=== PATIENT | female | born 1960 | race Caucasian/White ===

== ENCOUNTER → 2019-06-05 | Outpatient (CLI) | payer BC ==
--- NOTE | 2019-06-06 10:56 | MM ---
Reason for exam: screening (asymptomatic). Last mammogram was performed 3 years and 2 months ago. History: Patient is postmenopausal and had first child at age 33. Family history of breast cancer in 2 paternal aunts. Benign MG stereo VAD BX LT of the left breast, April 29, 2016. Benign cyst aspiration, 1994. Took hormonal contraceptives for 10 years. Physical Findings: A clinical breast exam by your physician is recommended on an annual basis and results should be correlated with mammographic findings. MG Screening Mammo w CAD Bilateral CC and MLO view(s) were taken. Prior study comparison: April 13, 2016, left breast MG work up mamm w CAD LT. March 23, 2016, bilateral MG screening mammo w CAD. The breast tissue is heterogeneously dense. This may lower the sensitivity of mammography. There are benign appearing round calcifications bilaterally. Previous mammotome biopsy in the left breast. There is no dominant lesion. Asymmetric breast tissue left subaeolar area stable from 2012. ASSESSMENT: Benign, BI-RAD 2 RECOMMENDATION: Routine screening mammogram of both breasts in 1 year.
== END | disposition home or self-care (01) ==
LOC: RADMAMWWP 11:49
PROVIDERS: ATTEND Obstetrics & Gynecology
DX: Z12.31 Encounter for screening mammogram for malignant neoplasm of breast (principal)
CPT/HCPCS: 77067

== ENCOUNTER → 2021-04-28 | Outpatient (CLI) | payer BC ==
--- NOTE | 2021-04-30 08:31 | MM ---
Reason for exam: screening (asymptomatic). Last mammogram was performed 1 year and 11 months ago. History: Patient is postmenopausal and had first child at age 33. Family history of breast cancer in 2 paternal aunts. Benign MG stereo VAD BX LT of the left breast, April 29, 2016. Benign cyst aspiration, 1994. Took hormonal contraceptives for 10 years. Physical Findings: A clinical breast exam by your physician is recommended on an annual basis and results should be correlated with mammographic findings. MG 3D Screening Mammo W/Cad Bilateral CC and MLO view(s) were taken. Prior study comparison: June 05, 2019, bilateral MG screening mammo w CAD. April 13, 2016, left breast MG work up mamm w CAD LT. March 23, 2016, bilateral MG screening mammo w CAD. The breast tissue is almost entirely fat. No significant changes when compared with prior studies. ASSESSMENT: Benign, BI-RAD 2 RECOMMENDATION: Routine screening mammogram of both breasts in 1 year.
== END | disposition home or self-care (01) ==
LOC: RADMAMWWP 13:24
PROVIDERS: ATTEND Family Medicine
DX: Z12.31 Encounter for screening mammogram for malignant neoplasm of breast (principal); Z78.0 Asymptomatic menopausal state; Z80.3 Family history of malignant neoplasm of breast; Z79.3 Long term (current) use of hormonal contraceptives
CPT/HCPCS: 77063; 77067

== ENCOUNTER 2022-10-09 11:15 | Day surgery (SDC) | payer BC ==
[2022-10-07 11:07] VITALS: BMI 23.3
[~2022-10-09 11:15] MED LIST: DEXAMETHASONE SOD PHOSPHATE 4 MG/ML 1 ML VIAL IV ONE; HYDROmorphone 0.5 MG/0.5 ML SYRINGE IVP PRN; LACTATED RINGERS 1,000 ML IV SCH; LIDOCAINE 1% (10MG/ML) FOR IV START INTRADERMA PRN; MIDAZOLAM 2 MG/2 ML VIAL IV PRN; ONDANSETRON 4 MG/2 ML VIAL IVP ONE
[2022-10-09 12:13] VITALS: TEMP 99.4
[2022-10-09] MEDS ORDERED: LIDOCAINE 2% INJ 20 MG/ML (2 ML VIAL) ONE (12:55)
[2022-10-09] MEDS ORDERED: MIDAZOLAM 2 MG/2 ML VIAL ONE (12:55)
[2022-10-09] MEDS ORDERED: fentaNYL (PF) 50 MCG/ML 2 ML AMP ONE (12:55)
[2022-10-09] MEDS ORDERED: PROPOFOL 10 MG/ML 20 ML VIAL IV ONE (12:55)
[2022-10-09] MEDS ORDERED: KETAMINE 10 MG/ML 20 ML VIAL ONE (12:55)
[2022-10-09] MEDS ORDERED: LIDOCAINE 1% INJ 10MG/ML (5 ML VIAL-PF) SQ ONE ×2 (13:18)
[2022-10-09] MEDS ORDERED: ACETAMINOPHEN TAB 325 MG TAB PO PRN ×2 (13:31→13:34)
[2022-10-09 13:37] VITALS: RESP 16
--- NOTE | 2022-10-09 13:37 | P.OP ---
Date of Procedure: 10/09/22 Preoperative Diagnosis: Recurrent left sided pleural effusion in the presence of metastatic pelvic cancer. Postoperative Diagnosis: Same Procedure(s) Performed: Left sided pleurX insertion Implants: PleurX catheter Anesthesia: YONI Surgeon: Ky Brown Estimated Blood Loss (ml): 5 Pathology: none sent Condition: stable Disposition: PACU Indications for Procedure: Recurrent left sided effusion in the setting of metastatic pelvic cancer. Operative Findings: 2500cc of serious fluid drained Description of Procedure: The patient was brought to the operating room and placed on the table in supine position. She was sedated and her left chest was prepped and draped in the usual sterile fashion. Antibiotics were given. I used 0.5% lidocaine to anesthetize the skin over the costal margin and on top of the 9th rib. I inserted the needle into the chest with good return of serous fluid. A guidewire was threaded into the chest under flouroscopic vision. The catheter was tunneled from the costal margin to the wire site and inserted into the chest over a peel away sheath. This was confirmed using flouroscopy. 2500cc of serous fluid was drained from the left chest.
[2022-10-09] MEDS ORDERED: KETOROLAC 15 MG/ML 1 ML VIAL ONE (13:50)
[2022-10-09] MEDS ORDERED: KETOROLAC 15 MG/ML 1 ML VIAL IVP ONE (13:51)
--- NOTE | 2022-10-09 14:08 | FL ---
EXAMINATION TYPE: FL guidance operating room DATE OF EXAM: 10/09/2022 CLINICAL HISTORY: Left-sided pleural effusion TECHNIQUE: Fluoroscopy. COMPARISON: CT abdomen and pelvis 6 days ago FINDINGS: Fluoroscopic guidance was provided during Pleurx catheter insertion procedure performed by Dr. Brown. A total of 3 seconds of fluoroscopic time was utilized during the procedure and 1 spot i mages was acquired. Intraoperative image shows catheter left lung base level. IMPRESSION: As Above.
--- NOTE | 2022-10-09 14:09 | XR ---
EXAMINATION TYPE: XR chest 1V portable DATE OF EXAM: 10/09/2022 COMPARISON: Chest x-ray 1 week ago. HISTORY: Pleural drainage catheter insertion TECHNIQUE: Single AP portable frontal upright view of the chest is obtained. FINDINGS: There is new left basilar pleural drainage catheter. Improved aeration left lung base is s een. Persistent small to moderate amount simple pleural fluid collection and associated left lower nataly ng atelectasis and/or infiltrate. Right lung remains clear. The cardiac silhouette size is upper limi ts of normal. Underlying scoliotic curvature is present. IMPRESSION: Improved but persistent left-sided pleural fluid collection after basilar catheter inser tion.
[2022-10-09] MEDS ORDERED: ACETAMINOPHEN TAB 500 MG TAB ONE (14:12)
[2022-10-09 14:27] VITALS: BP 126/77; PULSE 85
== END 2022-10-09 15:04 | disposition home health service (06) ==
LOC: OR 11:15
PROVIDERS: ATTEND Thoracic Surgery (Cardiothoracic Vascular Surgery)
DX: J90 Pleural effusion, not elsewhere classified (principal); C76.3 Malignant neoplasm of pelvis; F12.90 Cannabis use, unspecified, uncomplicated; K21.9 Gastro-esophageal reflux disease without esophagitis; Z79.899 Other long term (current) drug therapy
CPT/HCPCS: 71045; 32557; J2250; J1100; J2405; J2001 ×2; J3010; J1885; J2704

== ENCOUNTER → 2023-05-20 | Outpatient (CLI) | payer BC ==
--- NOTE | 2023-05-21 08:46 | MM ---
Reason for Exam: Screening (asymptomatic). Last mammogram was performed 2 year(s) and 1 month(s) ago. Patient History: Menarche at age 14. First Full-Term at age 33. Late child-bearing (after 31). Left ovary removed at age 62. Right ovary removed at age 62. Hysterectomy at age 62. Postmenopausal. Patient has history of breast feeding. Ovarian cancer, age 62. Previous chemotherapy at age 62. Patient used Hormonal Contraceptives for 10 years. Benign Cyst Aspiration. 04/29/2016, Benign Core Biopsy on the left side. Paternal aunt had breast cancer. Paternal aunt had breast cancer. Risk Values: Julissa 5 year model risk: 2.4%. NCI Lifetime model risk: 11.4%. Prior Study Comparison: 04/13/2016 Left Diagnostic Mammogram, [facility]. 06/05/2019 Bilateral Screening Mammogram, [facility]. 04/28/2021 Bilateral Screening Mammogram, [facility]. Tissue Density: There are scattered fibroglandular densities. Findings: Analyzed By CAD. There is no suspicious group of microcalcifications or new suspicious mass in either breast. Benign round calcifications within both breasts. Biopsy clip within the left breast. Overall Assessment: Benign, BI-RAD 2 Management: Screening Mammogram of both breasts in 1 year. A clinical breast exam by your physician is recommended on an annual basis and results should be correlated with mammographic findings. Note on Julissa scores and lifetime risk: 1. A Julissa score greater than 3% is considered moderate risk. If this is the case, consider specialist referral to assess eligibility for a risk reducing agent. If overall lifetime risk for the development of breast cancer is 20% or higher, the patient may qualify for future screening with alternating mammogram and breast MRI. Electronically signed and approved by: Javier Schmidt D.O.
== END | disposition home or self-care (01) ==
LOC: RADMAMWWP 16:08
PROVIDERS: ATTEND Family Medicine
DX: Z12.31 Encounter for screening mammogram for malignant neoplasm of breast (principal); Z78.0 Asymptomatic menopausal state; Z80.3 Family history of malignant neoplasm of breast
CPT/HCPCS: 77063; 77067

== ENCOUNTER → 2023-11-02 | Outpatient (CLI) | payer BC ==
[2023-11-02 11:26] LABS: African American GFR (CKD) 76 (>60 ml/min/1.73 sqM); Blood Urea Nitrogen 20 mg/dL (7-17); Non-African American GFR(CKD) 66 (>60 ml/min/1.73 sqM)
--- NOTE | 2023-11-02 12:51 | CT ---
EXAMINATION TYPE: CT ChestAbdPelvis w con DATE OF EXAM: 11/02/2023 COMPARISON: 12/06/2022 HISTORY: 62-year-old female C56.3, MALIGNANT NEOPLASM OF BILATERAL OVARIES TECHNIQUE: Contiguous axial scanning of the chest, abdomen, and pelvis performed with IV Contrast, pa tient injected with 100 mL of Isovue 300. Delayed images through the kidneys were obtained. Coronal/s agittal reconstructions performed. CT DLP: 572.8 mGycm Automated exposure control for dose reduction was used. FINDINGS: CHEST: The heart is normal size without pericardial effusion. 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 Right anterior chest wall injection port. Catheter tip at the lower. No thoracic lymphadenopathy by CT size criteria. Suspect a 1.1 cm subpleural lipoma overlying the left hemidiaphragm. Lungs show no consolidation or p leural effusion. ABDOMEN: Benign 2.4 cm hemangioma posterior right liver lobe redemonstrated. Portal venous system is patent. N o biliary ductal dilatation. There is a 1.5 cm gallstone. No abnormal gallbladder distention. Mild thickening of the left adrenal gland without discrete nodularity. Right adrenal gland not clearl y identified. Surgical clips upper right retroperitoneum. A couple benign renal cortical cysts measuring up to 9 mm. Symmetric uptake and excretion of contrast from the kidneys. Spleen and pancreas within normal limits. No dilated small bowel, free fluid, or free air. No mesenteric or retroperitoneal adenopathy is seen. Oral contrast progressed into the ascending colon. There is moderate stool throughout the colon and a sigmoid colostomy left lower quadrant. There is diverticulosis along the descending colon and proxim al to mid sigmoid colon colon just prior to the ostomy but no pericolic inflammatory change seen. The previous ascites and large pelvic mass which extended to the lower abdomen has been removed. Pelvis: Bladder nondistended. Left-sided pelvic phleboliths there is some nodular prominence measuring 2.3 cm at the vaginal cuff. No prior postsurgical exam is available to determine stability here. This may r eflect a prominent vaginal cuff after surgery. Recommend short interval follow-up to ensure stable ap pearance. Adjacent Andie's pouch noted. No abnormal fluid collection in the pelvis or pelvic lymph adenopathy. Neither ovary is visualized. Bones: Mild degenerative change of the hips. Mild degenerative change SI joints. Accentuated midthoracic ky phosis. Facet arthropathy lower lumbar spine. No osseous destructive process. IMPRESSION: 1. The previous large mass filling the pelvis and extending into the lower abdomen has been removed. Resolution of previous mild ascites fluid as well. 2. The vaginal cuff shows 2.3 cm nodular soft tissue prominence which may be normal postsurgical appe arance. Recommend short interval follow-up to ensure a stable appearance and to exclude any developin g soft tissue at the site of hysterectomy. 3. Otherwise, no evidence for metastatic disease within the chest, abdomen, or pelvis. 4. Status post distal colon resection with Bucio's pouch and left lower quadrant sigmoid colostomy. There is left-sided colonic diverticulosis without evidence for acute diverticulitis. 5. Incidental: Benign 2.4 cm hepatic hemangioma and a 1.5 cm gallstone.
== END | disposition home or self-care (01) ==
LOC: RADPROMAIN 10:28
PROVIDERS: ATTEND Internal Medicine Hematology & Oncology
DX: C56.3 Malignant neoplasm of bilateral ovaries (principal); D64.81 Anemia due to antineoplastic chemotherapy; R11.0 Nausea; D18.03 Hemangioma of intra-abdominal structures; K80.20 Calculus of gallbladder without cholecystitis without obstruction; K57.30 Diverticulosis of large intestine without perforation or abscess without bleeding; Z93.3 Colostomy status
CPT/HCPCS: 82565; 84520; 71260; 74177; J1642; Q9967

== ENCOUNTER 2023-12-23 12:31 | Emergency (ER) | payer BC ==
[2023-12-23 12:53] VITALS: RESP 18
--- NOTE | 2023-12-23 12:53 | ED ---
ENT HPI - General Chief complaint: ENT Stated complaint: nonstop nose bleed - pt has ovarian cancer Time Seen by Provider: 12/23/23 12:46 Source: patient, RN notes reviewed Mode of arrival: ambulatory Limitations: no limitations - History of Present Illness Initial comments: This is a 63-year-old female who presents to the emergency department for a nose bleed. States that it started about 20 minutes prior to arrival. She was just doing laundry when it occurred. Denies any pain associated with this. She is being treated for ovarian cancer but denies any new medications. She had blood work done 3 days ago that was normal, including normal platelets. Not taking any blood thinners. Denies a history of nosebleeds. MD complaint: epistaxis - Related Data Home Medications Medication Instructions Recorded Confirmed ALPRAZolam [Xanax] 0.25 mg PO Q6H PRN 12/01/22 12/01/22 Calcium Carbonate [Tums] 500 - 1,000 mg PO TID PRN 12/01/22 12/01/22 Lidocaine-Prilocaine Cream [Emla 1 applic TOPICAL DAILY PRN 12/01/22 12/01/22 Cream 2.5%/2.5%] OLANZapine [ZyPREXA] 5 mg PO DIRECTED 12/01/22 12/01/22 Ondansetron [Zofran] 4 mg PO Q8H PRN 12/01/22 12/01/22 Prochlorperazine [Compazine] 5 - 10 mg PO Q6H PRN 12/01/22 12/01/22 ondansetron HCL [Zofran] 8 mg PO BID PRN 12/01/22 12/01/22 oxyCODONE HCL [OxyIR] 5 mg PO HS 12/01/22 12/01/22 oxyCODONE HCL [OxyIR] 5 mg PO TID PRN 12/01/22 12/01/22 Previous Rx's Medication Instructions Recorded Ciprofloxacin HCl [Cipro] 500 mg PO Q12HR 10 Days #20 tab 12/10/22 Docusate [Colace] 100 mg PO DAILY PRN cap 12/10/22 Magnesium Oxide [Mag-Ox] 400 mg PO BID tab 12/10/22 Meclizine [Antivert] 25 mg PO TID PRN tab 12/10/22 Sodium Chloride Tab 1 gm PO BID tab 12/10/22 metroNIDAZOLE [Flagyl] 500 mg PO TID #30 tab 12/10/22 polyethylene glycoL 3350 [Miralax] 17 gm PO DAILY PRN packet 12/10/22 Allergies Allergy/AdvReac Type Severity Reaction Status Date / Time No Known Allergies Allergy Verified 12/23/23 12:39 Review of Systems ROS Statement: Those systems with pertinent positive or pertinent negative responses have been documented in the HPI. ROS Other: All systems not noted in ROS Statement are negative. Past Medical History Additional Past Medical History / Comment(s): new diagnosis ovarian CA-pt being referred to Dr Lucero Munguia,recent Sep 2022 admission for left pleural effusion/SOB/had thorencentesis w/ 1.7L removed on 10-02-22, prolapsed uterus/bladder, covid 12/2020 and 04/2022, UTI History of Any Multi-Drug Resistant Organisms: None Reported Past Surgical History: Section Additional Past Surgical History / Comment(s): adrenal gland removal 1995, pessary, has appt set for 10/05/2022 for prolapsed uterus/bladder repair Past Anesthesia/Blood Transfusion Reactions: No Reported Reaction Past Psychological History: No Psychological Hx Reported Smoking Status: Former smoker Past Alcohol Use History: None Reported Past Drug Use History: None Reported - Past Family History Mother Family Medical History: Osteoarthritis (OA) General Exam Limitations: no limitations General appearance: alert, in no apparent distress Head exam: Present: atraumatic, normocephalic, normal inspection Respiratory exam: Present: normal lung sounds bilaterally. Absent: respiratory distress, wheezes, rales, rhonchi, stridor Cardiovascular Exam: Present: regular rate, normal rhythm, normal heart sounds. Absent: systolic murmur, diastolic murmur, rubs, gallop, clicks Neurological exam: Present: alert, oriented X3, CN II-XII intact Psychiatric exam: Present: normal affect, normal mood Skin exam: Present: warm, dry, intact, normal color. Absent: rash Course Vital Signs 12/23/23 12/23/23 12:34 15:05 Temperature 97.5 F L 98.7 F Pulse Rate 97 80 Respiratory 18 18 Rate Blood Pressure 159/94 128/79 O2 Sat by Pulse 98 99 Oximetry Medical Decision Making - Medical Decision Making This is a 63 year old female who presents to the emergency department for epistaxis. Was pt. sent in by a medical professional or institution? @ -No Did you speak to anyone other than the patient for history? @ -No Did you review nursing and triage notes? @ -Yes, and I agree, it is accurate with regards to the patient's symptoms. Were old charts reviewed? @ -No Differential Diagnosis? @ -Differential Epistaxis: Injury, coagulopathy, allergic rhinitis, this is not meant to be an all- inclusive list. EKG interpreted by me (3pts min.)? @ -Not obtained X-rays interpreted by me (1pt min.)? @ -Not obtained CT interpreted by me (1pt min.)? @ -Not obtained U/S interpreted by me (1pt. min.)? @ -Not obtained What testing was considered but not performed? (CT, X-rays, U/S, labs)? Why? @ -None What meds were considered but not given? Why? @ -None Did you discuss the management of the patient with other professionals? @ -No Did you reconcile home meds? @ -No Was smoking cessation discussed for >3mins.? @ -No Was critical care preformed (if so, how long)? @ -No Were there social determinants of health that impacted care today? How? (Homelessness, low income, unemployed, alcoholism, drug addiction, transportation, low edu. Level, literacy, decrease access to med. care, penitentiary, rehab)? @ -No Was there de-escalation of care discussed even if they declined? (Discuss DNR or withdrawal of care, Hospice)? @ -No What co-morbidities impacted this encounter? (DM, HTN, Smoking, COPD, CAD, Cancer, CVA, Hep., AIDS, mental health diagnosis, sleep apnea, morbid obesity)? @ -None Was patient admitted / discharged? @ -Discharged. Afrin was administered in both nostrils and her nose was clamped for 20 to 30 minutes afterwards. Bleeding had stopped at that time. She was monitored for an additional 30 minutes without any return of symptoms. Patient sent home with Afrin and nasal clamps and instructed on how to use this again if the bleeding returns. Advised saline nasal spray to help moisten the nasal passages to reduce the risk of recurrence. Patient discharged home in stable condition. Undiagnosed new problem with uncertain prognosis? @ -None Drug Therapy requiring intensive monitoring for toxicity (Heparin, Nitro, Insulin, Cardizem)? @ -None Were any procedures done? @ -None Diagnosis/symptom? @ -Epistaxis Acute, or Chronic, or Acute on Chronic? @ -Acute Uncomplicated (without systemic symptoms) or Complicated (systemic symptoms)? @ -Uncomplicated Side effects of treatment? @ -None Exacerbation, Progression, or Severe Exacerbation] @ -Not applicable Poses a threat to life or bodily function? @ -No Return precautions reviewed in depth, the patient is instructed to return to the emergency department with any new, worsening, or concerning symptoms. Patient verbalized understanding. This case was discussed in detail with the attending ED physician, Dr. Niño. Presentation, findings, and treatment plan discussed in detail as well. Disposition Clinical Impression: Epistaxis Disposition: HOME SELF-CARE Instructions (If sedation given, give patient instructions): Nosebleed (ED) Additional Instructions: Return to the emergency department with any new, worsening, or concerning symptoms. If the nosebleed happens again, do a few squirts of Afrin in each nostril and clamp the nose for approximately 30 minutes. If this is not effective, you can repeat this. If the bleeding slows significantly, that is okay. However, if it continues bleeding persistently, return to the emergency department. Use over the counter saline nasal spray a few times daily to help moisten the nostrils and reduce the risk of recurrence. Follow up with your primary care provider in 1-2 days. Is patient prescribed a controlled substance at d/c from ED?: No Referrals: Harmeet Mackenzie MD [Primary Care Provider] - 1-2 days Time of Disposition: 14:25
[2023-12-23] MEDS: OXYMETAZOLINE 0.05% NASL SPRAY 1 SPRAY BOTTLE NASAL STA (12:57)
[2023-12-23 15:14] VITALS: BP 128/79; PULSE 80; TEMP 98.7
== END 2023-12-23 15:07 | disposition home or self-care (01) ==
LOC: EC 12:31
DX: R04.0 Epistaxis (principal); Z86.16 Personal history of COVID-19; Z87.891 Personal history of nicotine dependence
CPT/HCPCS: 99283

== ENCOUNTER → 2024-01-28 | Outpatient (CLI) | payer BC ==
[2024-01-28 10:38] LABS: African American GFR (CKD) 77 (>60 ml/min/1.73 sqM); Blood Urea Nitrogen 16 mg/dL (7-17); Non-African American GFR(CKD) 67 (>60 ml/min/1.73 sqM)
--- NOTE | 2024-01-28 14:51 | CT ---
EXAMINATION TYPE: CT ChestAbdPelvis w con DATE OF EXAM: 01/28/2024 INDICATION: Ovarian CA COMPARISON: 11/02/2023 CT DLP: 1215 mGycm CONTRAST: Performed with Oral Contrast and with IV Contrast, patient injected with 100 mL of Isovue 300. TECHNIQUE: Axial images at 5 mm thick sections. Reconstructed images in the coronal plane. Delayed images through the kidneys. FINDINGS: CT CHEST: Portion of the thyroid visualized is normal. No suspicious lung nodules or focal infiltrates are present. There is a 1.2 cm lymph node in the superior mediastinum at the level of the great vessels. The ascending aorta diameter at the level of the main pulmonary artery is 3.2 cm. The main pulmonary artery diameter at the bifurcation is 2.[address] ABDOMEN: Liver: There is an irregular hypodensity with some peripheral enhancement measuring 2.7 cm posterior right lobe liver. This may be slightly larger than comparison. This area is incompletely enhanced on the delayed images. Hemangioma however remains within the differential. Spleen: Normal Pancreas: Normal Adrenal glands: The adrenal glands are normal. Gallbladder: Gallstone is present. Kidneys: No masses are evident. No hydronephrosis is present. No cysts are present. Delayed images were obtained through the kidneys, which remain unremarkable. Aorta: Normal Inferior vena cava: Normal. CT PELVIS: Loops of bowel within the abdomen and pelvis are normal. Ostomy in the left lower quadrant. There are loops of bowel which are incompletely distended or lack oral contrast limiting their evaluation. Appendix: Not visualized. No dilated tubular structure or inflammatory changes evident. Urinary bladder: Normal Genitourinary structures: Uterus is unremarkable. Adnexa are normal. No omental caking is evident. No large ovarian cysts evident. No free fluid within the pelvis. Osseous structures: No suspicious lytic or sclerotic lesions. IMPRESSION: 1. Stable 1.2 cm lymph node superior mediastinum. 2. Irregular hypodensity within the liver may be related to a hemangioma. Other etiologies are not ex cluded. This has enlarged over the interval. 3. No suspicious changes for metastatic ovarian cancer
== END | disposition home or self-care (01) ==
LOC: RADCTMAIN 09:33
PROVIDERS: ATTEND Internal Medicine Hematology & Oncology
DX: K76.89 Other specified diseases of liver (principal); C56.3 Malignant neoplasm of bilateral ovaries; D64.81 Anemia due to antineoplastic chemotherapy; R11.0 Nausea
CPT/HCPCS: 82565; 84520; 71260; 74177; J1642; Q9967

== ENCOUNTER → 2024-05-23 | Outpatient (CLI) | payer BC ==
--- NOTE | 2024-06-15 16:35 | CT ---
Isak Johnson ID [id number] 1960 Age/Gender: 63Y, N/A Order # [id number] ChestAbdPelvis wo con Date 05/23/2024 11:02:00 AM EXAMINATION TYPE: CT ChestAbdPelvis wo con CT DLP: 373.80 mGycm, Automated exposure control for dose reduction was used. DATE OF EXAM: 06/07/2024 10:34 AM COMPARISON: None, please note PACS Production downtime occurred during the radiologist interpretation of these images with limited priors/reports. CLINICAL INDICATION: Female, 63 year old with history of ovarian cancer, hysterectomy, right adrenal gland removed; , Technique: Multiple axial images of the chest, abdomen, and pelvis were obtained without the administ ration intravenous or oral contrast. This limits evaluation. Two-dimensional coronal and sagittal rec onstructions were obtained. Findings: CHEST: LUNGS/ PLEURA: The lung parenchyma appears unremarkable. No suspicious pulmonary nodule or mass. AIRWAY: Patent and unremarkable.. HEART: Size within normal limits. Trace anterior pericardial effusion. MEDIASTINUM: Superior mediastinal left paratracheal 1.3 cm enlarged lymph node (series 3, 15). VASCULATURE: No aortic aneurysm. Right anterior chest wall IJ port catheter with distal tip terminat ing in the mid SVC. MUSCULOSKELETAL: No acute osseous abnormalities. No aggressive osseous lesion. SOFT TISSUES/LYMPH NODES: Unremarkable. LOWER NECK: No significant findings. ABDOMEN: ABDOMEN LIVER: Unremarkable noncontrast appearance GALLBLADDER AND BILE DUCTS: Cholelithiasis. No biliary ductal dilatation. PANCREAS: Unremarkable noncontrast appearance. SPLEEN: Unremarkable noncontrast appearance ADRENAL GLANDS: Postsurgical changes from right adrenalectomy. Unremarkable noncontrast appearance of the left adrenal gland. KIDNEYS AND URETERS: No evidence of hydronephrosis or renal calculus. PELVIS BLADDER: Incompletely distended but grossly unremarkable. REPRODUCTIVE: Postsurgical changes from hysterectomy with soft tissue prominence of the vaginal cuff. Evaluation is limited due to lack of intravenous and oral contrast. ABDOMEN & PELVIS STOMACH AND BOWEL: Small hiatal hernia, duodenum is unremarkable. No evidence of bowel obstruction. P ostsurgical changes with Andie pouch. Left lower quadrant ostomy. No focal bowel wall thickening i dentified. No surrounding inflammatory changes. Sigmoid diverticulosis PERITONEUM: No evidence of pneumoperitoneum or free fluid. VASCULATURE: No evidence of aortic aneurysm. Left-sided pelvic phleboliths. MUSCULOSKELETAL: No acute osseous abnormalities. No aggressive osseous lesion. LYMPH NODES: No gross evidence for lymphadenopathy. SOFT TISSUE/ABDOMINAL WALL: Postsurgical changes of the midline anterior abdominal wall with left low er quadrant ostomy. Atrophy of the rectus abdominis muscle. IMPRESSION: 1. Postsurgical changes from hysterectomy with soft tissue prominence at the vaginal cuff. Evaluatio n is limited due to lack of intravenous and oral contrast. No priors available for comparison. If timothy ors are made available, comparison can be made otherwise consider further evaluation with ultrasound. 2. Enlarged left paratracheal mediastinal lymph node. This is nonspecific but could represent metast asis. Correlation with prior imaging is recommended. 3. Cholelithiasis.
== END | disposition home or self-care (01) ==
LOC: RADCTMAIN 10:57
PROVIDERS: ATTEND Internal Medicine Hematology & Oncology
DX: C56.3 Malignant neoplasm of bilateral ovaries (principal); K80.20 Calculus of gallbladder without cholecystitis without obstruction; R59.0 Localized enlarged lymph nodes; Z85.43 Personal history of malignant neoplasm of ovary; Z90.710 Acquired absence of both cervix and uterus
CPT/HCPCS: 71250; 74176

== ENCOUNTER → 2024-07-17 | Outpatient (CLI) | payer BC ==
--- NOTE | 2024-07-18 10:02 | BD ---
EXAMINATION TYPE: Axial Bone Density DATE OF EXAM: 07/17/2024 CLINICAL HISTORY: 63 years old Female. ICD-10 CODE: Z13.820 OSTEO SCR Height: 63.75in Weight: 132lb FRAX RISK QUESTIONS: History of Fracture in Adulthood: yes Secondary Osteoporosis: RISK FACTORS HISTORY OF: MEDICATIONS: EXAM MEASUREMENTS: Bone mineral densitometry was performed using the [employer] System. Bone mineral density as measured about the Lumbar spine is: ----- L1-L4(G/cm2): 0.956 T Score Values are as follows: ----- L1: -2.3 ----- L2: -2.6 ----- L3: -2.1 ----- L4: -0.9 ----- L1-L4: -1.9 Z Score Values are as follows: ----- L1: -0.7 ----- L2: -1.0 ----- L3: -0.5 ----- L4: 0.7 ----- L1-L4: -0.3 First dexa at [facility] Bone mineral density about the R hip (g/cm2): 0.703 Bone mineral density about the L hip (g/cm2): 0.715 T Score values are as follows: -----R Neck: -2.3 -----L Neck: -2.0 -----R Total: -2.4 -----L Total: -2.3 Z Score values are as follows: -----R Neck: -0.8 -----L Neck: -0.5 -----R Total: -1.2 -----L Total: -1.1 First dexa at [facility] FRAX%s: The graph provided illustrates a 18.2% chance for a major osteoporotic fx and a 3.3% chance f or the hips probability for fx in 10 years time. IMPRESSION: Osteopenia (T Score between -2.5 and -1). There is slightly increased risk of fracture and the patient may be considered for treatment. Re-Screen 2-5 years. NOTE: T-SCORE=SD OF THE YOUNG ADULT MEAN. [facility], , 07/18/2024 10:00 AM
== END | disposition home or self-care (01) ==
LOC: RADBDWWP 14:50
PROVIDERS: ATTEND Family Medicine
DX: Z13.820 Encounter for screening for osteoporosis
CPT/HCPCS: 77080

== ENCOUNTER → 2024-07-19 | Outpatient (CLI) | payer BC ==
--- NOTE | 2024-07-20 14:13 | MM ---
Reason for Exam: Screening (asymptomatic). Last mammogram was performed 1 year(s) and 2 month(s) ago. Patient History: Menarche at age 14. First Full-Term at age 33. Late child-bearing (after 31). Left ovary removed at age 62. Right ovary removed at age 62. Hysterectomy at age 62. Postmenopausal. Patient has history of breast feeding. Ovarian cancer, age 62. Previous chemotherapy at age 62. Patient used Hormonal Contraceptives for 10 years. Benign Cyst Aspiration. 04/29/2016, Benign Core Biopsy on the left side. Paternal aunt had breast cancer. Paternal aunt had breast cancer. Risk Values: Julissa 5 year model risk: 2.5%. NCI Lifetime model risk: 11.0%. Prior Study Comparison: 06/05/2019 Bilateral Screening Mammogram, [facility]. 04/28/2021 Bilateral Screening Mammogram, [facility]. 05/20/2023 Bilateral MG 3D screening mammo w/cad, [facility]. Tissue Density: There are scattered areas of fibroglandular density. Findings: Analyzed By CAD. Left breast surgical clips. Right breast: There is no suspicious group of microcalcifications or new suspicious mass. Benign-appearing calcifications right breast. Left breast: There is no suspicious group of microcalcifications or new suspicious mass. Benign-appearing calcifications left breast. Overall Assessment: Benign, BI-RAD 2 Management: Screening Mammogram of both breasts in [address] [facility] will attempt to contact patient to return for supplemental views and ultrasound if indicated. Patient should continue monthly self-breast exams. A clinical breast exam by your physician is recommended on an annual basis. This exam should not preclude additional follow-up of suspicious palpable abnormalities. Note on Julissa scores and lifetime risk: 1. A Julissa score greater than 3% is considered moderate risk. If this is the case, consider specialist referral to assess eligibility for a risk reducing agent. 2. If overall lifetime risk for the development of breast cancer is 20% or higher, the patient may qualify for future screening with alternating mammogram and breast MRI. [facility], , 07/20/2024 2:11 PM. Electronically signed and approved by: Jero Alonso DO
== END | disposition home or self-care (01) ==
LOC: RADMAMWWP 15:08
PROVIDERS: ATTEND Family Medicine
DX: Z12.31 Encounter for screening mammogram for malignant neoplasm of breast
CPT/HCPCS: 77063; 77067

== ENCOUNTER → 2024-09-20 | Outpatient (CLI) | payer BC ==
[2024-09-20 12:01] LABS: African American GFR (CKD) 67 (>60 ml/min/1.73 sqM); Blood Urea Nitrogen 16 mg/dL (7-17); Non-African American GFR(CKD) 58 (>60 ml/min/1.73 sqM)
--- NOTE | 2024-09-22 10:15 | CT ---
EXAMINATION TYPE: CT ChestAbdPelvis w con DATE OF EXAM: 09/20/2024 1:37 PM COMPARISON: 05/23/2024 CLINICAL INDICATION: Female, 63 years old with history of C56.3 OVARIAN CA, f/u ovarian ca TECHNIQUE: Axial images at 5 mm thick sections. Reconstructed images in the coronal plane. Delayed images through the kidneys. Contrast used:100 mL of Isovue 300 with IV Contrast, (none if empty) Oral contrast used: with Oral Contrast (none if empty) CT DLP: 541.4 mGycm, Automated exposure control for dose reduction was used. FINDINGS: CT CHEST: Portion of the thyroid visualized is normal. No suspicious lung nodules or focal infiltrates are present. There is some minimal pleural thickening along the posterior left lung margin. No enlarged mediastinal or hilar adenopathy is evident. The ascending aorta diameter at the level of the main pulmonary artery is 3.5 cm. The main pulmonary artery diameter at the bifurcation is 2.[address] ABDOMEN: Liver: There is a peripherally enhancing lesion measuring 2.7 cm. On delayed images there is near com plete enhancement and is nearly isodense with the liver. Findings are likely related to hemangioma. T his is stable from comparison study of 01/28/2024. Spleen: Normal Pancreas: Normal Adrenal glands: Right adrenal gland appears surgically absent. Left adrenal gland is unremarkable Gallbladder: Cholelithiasis is present. Kidneys: No masses are evident. No hydronephrosis is present. Tiny cortical renal cyst at the infer ior pole left kidney. There is a medial right renal cortical cyst. Delayed images were obtained thro ugh the kidneys, which remain unremarkable. Aorta: Normal Inferior vena cava: Normal. CT PELVIS: There is an ostomy in the anterior left pelvic wall. There are loops of bowel which are incompletely distended or lack oral contrast limiting their evaluation. Appendix: Normal as visualized. Urinary bladder: Normal. Genitourinary structures: Vaginal cuff region is unremarkable. No suspicious adnexal masses or cysts evident. No free fluid is within the abdomen or pelvis. No omental caking is identified. Osseous structures: No suspicious lytic or sclerotic lesions. IMPRESSION: 1. No suspicious changes to suggest recurrent or metastatic ovarian neoplasm. 2. Ostomy. No bowel obstruction or stenosis identified. 3. Cholelithiasis. 4. Suspected hemangioma within the liver [facility]: [facility], 09/22/2024 10:12 AM
== END | disposition home or self-care (01) ==
LOC: RADCTMAIN 10:59
PROVIDERS: ATTEND Internal Medicine Hematology & Oncology
DX: C56.3 Malignant neoplasm of bilateral ovaries (principal); K80.20 Calculus of gallbladder without cholecystitis without obstruction
CPT/HCPCS: 82565; 84520; 71260; 74177; 36415; J1642; Q9967

== ENCOUNTER → 2024-11-02 | Outpatient (CLI) | payer BC ==
--- NOTE | 2024-11-02 14:42 | PE ---
EXAMINATION TYPE: PET CT fusion skull to thigh DATE OF EXAM: 11/02/2024 CLINICAL HISTORY: Ovarian cancer TECHNIQUE: Following the intravenous administration of 13.16 mCi of F-18 FDG, whole body images are performed from the skull base to the midthigh. Images are reviewed on the computer in the coronal, axial, and sagittal planes. Reconstructed rotating images are created on independent workstation and reviewed on the computer. A non-contrast CT is performed in conjunction with the PET scan. Blood g lucose level equals 104 Subsequent study COMPARISON: Most recent CT September 20, 2024 and older exams. FINDINGS: SKULL BASE AND NECK: No areas of suspicious abnormal hypermetabolic uptake CHEST, MEDIASTINUM, AND HILAR REGION: Tiny areas with majority subcentimeter of nodularity or nodular thickening in the posterior left lower lobe are redemonstrated with mild hypermetabolic uptake, max SUV is 5.74 on axial image 100 ABDOMEN AND PELVIS: Normal excretion is seen. Slightly prominent lymph node adjacent to the IVC in th e lower abdomen is redemonstrated axial image 155 measuring 1.4 x 0.7 cm. No abnormal hypermetabolic uptake is present at this level. There is redemonstration of hysterectomy and left-sided colostomy. Adjacent to surgical sutures in th e left pelvis there is new hypermetabolic soft tissue nodule axial image 185 measuring 2.1 x 1.7 cm w ith max SUV of 13.44. Just inferior to this in the right pelvis slightly more posteriorly there is ap proximately 1.0 cm hypermetabolic focus which blends with adjacent bowel near axial image 189, max WALLACE V is 11.07. This is better seen on recent CT in retrospect adjacent to opacified bowel axial image 10 0. OSSEOUS STRUCTURES: No areas of abnormal hypermetabolic uptake. OTHER CT: There is mucous retention cyst or polyp in the posterior inferior left maxillary sinus. The re is right internal jugular Mediport catheter redemonstrated. Large dependent gallstone again seen. Distal colonic diverticulosis near the ostomy is redemonstrated . Surgical sutures just below this are noted. IMPRESSION: Active neoplastic recurrence in the pelvis is identified. Nonspecific less prominent hype rmetabolic uptake in the posterior pleura of the left lower lobe. [facility], , 11/02/2024 2:40 PM
== END | disposition home or self-care (01) ==
LOC: RADPETMAIN 09:09
PROVIDERS: ATTEND Internal Medicine Hematology & Oncology
DX: C56.3 Malignant neoplasm of bilateral ovaries (principal); K57.30 Diverticulosis of large intestine without perforation or abscess without bleeding; K80.80 Other cholelithiasis without obstruction
CPT/HCPCS: 78815; A9552

== ENCOUNTER → 2025-02-19 | Outpatient (CLI) | payer BC ==
--- NOTE | 2025-02-19 14:30 | US ---
EXAMINATION TYPE: US kidneys/renal and bladder DATE OF EXAM: 02/19/2025 COMPARISON: PET CT 11/02/2024, CT chest and pelvis 09/20/2024 CLINICAL INDICATION: Female, 64 years old with history of N13.30 UNSPECIFIED HYDRONEPHROSIS; Hx bladd er cancer, partial resection, recent stent removal TECHNIQUE: Grayscale imaging of the bilateral kidneys and urinary bladder: FINDINGS: EXAM MEASUREMENTS: Right Kidney: 9.4x3.6x4.9 cm Left Kidney: 10.4x4.4x5.0 cm Right Kidney: No hydronephrosis or masses seen Left Kidney: upper pole cystic area: 0.7x0.8x0.7cm Bladder: small size, wnl as best visualized There is no evidence for hydronephrosis at this point in time. No nephrolithiasis is seen. Corticome dullary differentiation is maintained bilaterally. No right renal lesion. Simple appearing left renal upper pole subcentimeter cyst. The urinary bladder is anechoic but underdistended limiting evaluatio n. exam limited by post surgical changes, bowel gas IMPRESSION: No hydronephrosis or nephrolithiasis. [facility], , 02/19/2025 2:28 PM
== END | disposition home or self-care (01) ==
LOC: RADUSWWP 13:05
PROVIDERS: ATTEND Urology
DX: N13.30 Unspecified hydronephrosis (principal); Z85.51 Personal history of malignant neoplasm of bladder
CPT/HCPCS: 76770

== ENCOUNTER → 2025-04-23 | Outpatient (CLI) | payer MEDICARE, BC ==
[2025-04-23 12:40] LABS: African American GFR (CKD) >90 (>60 ml/min/1.73 sqM); Blood Urea Nitrogen 21 mg/dL (7-17); Non-African American GFR(CKD) >90 (>60 ml/min/1.73 sqM)
--- NOTE | 2025-04-23 17:27 | CT ---
EXAMINATION TYPE: CT ChestAbdPelvis w con DATE OF EXAM: 04/23/2025 1:55 PM COMPARISON: 11/02/2024, PET/CT. 09/20/2024 CT Chest Abdomen Pelvis With CLINICAL INDICATION: Female, 64 years old with history of C56.3 OVARIAN CA, f/u ovarian ca TECHNIQUE: CT ChestAbdPelvis w con , with sagittal coronal reformats. If MIP/3-D images were created, there are created on a separate workstation. Contrast used:100ml mL of Isovue 300 with IV Contrast, (none if empty) Oral contrast used: with Oral Contrast (none if empty) CT DLP: 489.7 mGycm, Automated exposure control for dose reduction was used. FINDINGS: CT CHEST: Portion of the thyroid visualized is normal. There is some mild stranding in the posterior some minimal left pleural effusion may be present. Left lung base. No enlarged mediastinal or hilar adenopathy is evident. No significant coronary artery calcification s. The ascending aorta diameter at the level of the main pulmonary artery is 3.4 cm. The main pulmonary artery diameter at the bifurcation is 2.[address] ABDOMEN: Liver: There is an irregular hypodensity measuring 2.8 cm in the posterior right lobe liver. Spleen: Normal Pancreas: Normal Adrenal glands: The adrenal glands are normal. Gallbladder: Large gallstone Kidneys: No masses are evident. No hydronephrosis is present. Small right renal cortical cyst measu ring 1.2 cm Delayed images were obtained through the kidneys, which remain unremarkable. Aorta: Vascular calcification is within the aorta. Inferior vena cava: Normal. CT PELVIS: There appears be an ostomy site in the anterior left abdomen. Postsurgical changes are in the presacral space. Loops of bowel otherwise appear unremarkable. Oral contrast extends to the descending colon. No suspi cious dilated loops of bowel are evident. There are loops of bowel lacking contrast limits evaluation . Appendix: Normal as visualized. Urinary bladder: Normal. Genitourinary structures: Uterus and ovaries are not identified. No omental caking is evident. No sig nificant ascites is identified. No suspicious abdominal adenopathy evident. Osseous structures: No suspicious lytic or sclerotic lesions. IMPRESSION: 1. Irregular hypodensity within the liver likely hemangioma. 2. Cholelithiasis. 3. Postsurgical changes within the distal colon. 4. No suspicious changes to suggest ovarian metastatic disease [facility], , 04/23/2025 5:25 PM
== END | disposition home or self-care (01) ==
LOC: RADCTMAIN 11:33
PROVIDERS: ATTEND Internal Medicine Hematology & Oncology
DX: C56.3 Malignant neoplasm of bilateral ovaries (principal); K80.20 Calculus of gallbladder without cholecystitis without obstruction; Z98.890 Other specified postprocedural states
CPT/HCPCS: 82565; 84520; 71260; 74177; 36415; Q9967